=== PATIENT | male | born 1990 | race Caucasian/White ===

== ENCOUNTER 2019-07-24 11:40 | Emergency (ER) | payer BC ==
[~2019-07-24] VITALS: Ht 185.4 cm; Wt 87.5 kg
[2019-07-24 12:45] LABS: ABSOLUTE NEUTROPHILS 3.8 thou/uL (1.4-8.2); BASOPHILS 0.7 % (0.0-2.0); EOSINOPHILS 1.1 % (0.0-3.0); HEMATOCRIT 46.1 % (42.0-52.0); HEMOGLOBIN 15.2 gm/dL (14.0-18.0); LYMPHOCYTES 27.9 % (24.0-44.0); MCH 29.5 pg (26.0-34.0); MCHC 32.9 g/dL (28.0-37.0); MCV 89.8 fL (80.0-100.0); MONOCYTES 8.6 % (1.0-8.0); PLATELET COUNT 255 thou/uL (150-400); POLYS 61.7 % (36.0-66.0); RBC 5.14 mil/uL (4.50-6.00); RDW 12.8 % (10.5-14.5); WBC 6.2 thou/uL (4.0-11.0)
[2019-07-24 12:53] LABS: ANION GAP 9 mmol/L (7-16); BUN 15 mg/dL (7-18); CALCIUM 9.4 mg/dL (8.5-10.1); CHLORIDE 101 mmol/L (98-107); CO2 28 mmol/L (21-32); CREATININE 0.9 mg/dL (0.7-1.3); GLUCOSE 96 mg/dL (74-106); POTASSIUM 3.8 mmol/L (3.5-5.1); SODIUM 138 mmol/L (136-145)
[2019-07-24 13:03] LABS: ALBUMIN 4.5 g/dL (3.4-5.0); SGOT 262 U/L (15-37); SGPT 79 U/L (30-65); TOTAL BILIRUBIN 0.7 mg/dL (<0.1-1.0); TOTAL PROTEIN 7.6 g/dL (6.4-8.2); TROPONIN-I <0.06 ng/mL (<0.06)
[2019-07-24] MEDS ORDERED: LISINOPRIL10 MG PO (13:09)
[2019-07-24 13:19] VITALS: BP 146/78
--- NOTE | 2019-07-25 08:15 | EKG ---
[facility] [place] [address] ELECTROCARDIOGRAM REPORT Name: LULU ELLIOTT Room #: DEP [facility]#: [id number] Admission: 07/24/19 Attend Phys: Discharge: 07/24/19 Date of : 86 Report #: [id number] THIS REPORT FOR: cc: FAM - Family physician unknown FAM - Family physician unknown Jose Mckoy MD ~ THIS REPORT FOR: //name// [facility] ED Test Date: 2019-07-24 Test Time: 11:52:09 Pat Name: LULU ELLIOTT Department: Room: Gender: Project Development Director: [facility] : 1990 Requested By: Omar Burns Order Number: [id number] MD: Jose Mckoy Measurements Intervals [place] Rate: 77 P: 73 DE: 142 QRS: 51 QRSD: 100 T: 13 QT: 361 QTc: 409 Interpretive Statements Sinus rhythm Left atrial enlargement Left ventricular hypertrophy No previous ECG available for comparison Electronically Signed On 07-25-2019 8:14:25 CDT by Jose Mckoy [email or web address] <ELECTRONICALLY SIGNED> [place]: [place] [id number] Jose Mckoy MD /ALEXEI
== END 2019-07-24 13:20 | disposition home or self-care (01) ==
LOC: ER 11:40
PROVIDERS: Physician Assistant
DX: I11.0 Hypertensive heart disease with heart failure (principal); I50.1 Left ventricular failure, unspecified

== ENCOUNTER → 2019-08-27 | Outpatient (CLI) | payer BC ==
[~2019-08-27] MED LIST: LISINOPRIL10 MG PO
== END ==
LOC: SJCVCIMAG 11:20
DX: I08.1 Rheumatic disorders of both mitral and tricuspid valves (principal); I10 Essential (primary) hypertension; E78.5 Hyperlipidemia, unspecified; G47.33 Obstructive sleep apnea (adult) (pediatric); Z82.49 Family history of ischemic heart disease and other diseases of the circulatory system; Z79.899 Other long term (current) drug therapy